=== PATIENT | male | born 1990 | race American Indian/Alaskan Native ===

== ENCOUNTER 2019-05-20 09:45 | Emergency (ER) | payer SELFPAY ==
[2019-05-20] MEDS ORDERED: ZOFRAN IV ONE (10:06)
[2019-05-20] MEDS ORDERED: NACL 0.9% 1000 ML 1,000 ML IV ONE (10:06)
[2019-05-20] MEDS ORDERED: MORPHINE IV ONE (10:06)
--- NOTE | 2019-05-20 10:10 | Emergency Department Report ---
HPI - General Chief Complaint: Abdominal Pain Time Seen by Provider: 05/20/19 10:04 - HPI HPI: 28-year-old -[place] male presents to the emergency department via EMS from home with complaint of right-sided abdominal and flank pain that started last night. It associated with some nausea and vomiting. He has not taken anything for her symptoms prior to arrival. He has a history of multiple kidney stones in the past. No primary care physician. He did not receive anything in route. He describes his pain intensity is 10 out of 10. No known aggravating or alleviating factors. ED Past Medical Hx - Past Medical History Previous Medical History?: Yes Hx Kidney Stones: Yes - Social History Smoking Status: Current Every Day Smoker Substance Use Type: Alcohol, Marijuana - Medications Home Medications: Home Medications Medication Instructions Recorded Confirmed Last Taken Type HYDROcodone/APAP 5-325 [[place] 1 each PO Q6HR PRN #10 tablet 05/20/19 Unknown Rx 5/325] Sulfamethoxazole/Trimethoprim 1 each PO BID #10 tablet 05/20/19 Unknown Rx [Bactrim DS TAB] Tamsulosin [Flomax] 0.4 mg PO QDAY #4 cap 05/20/19 Unknown Rx ED Review of Systems ROS: Stated complaint: ABD PAIN Other details as noted in HPI Comment: All other systems reviewed and negative Constitutional: denies: chills, fever Eyes: denies: eye pain, vision change ENT: denies: ear pain, throat pain Respiratory: denies: cough, shortness of breath Cardiovascular: denies: chest pain, palpitations Gastrointestinal: abdominal pain, nausea, vomiting Genitourinary: denies: dysuria, frequency Musculoskeletal: denies: joint swelling, arthralgia Skin: denies: rash, lesions Neurological: denies: headache, weakness Physical Exam - Physical Exam Vital Signs: Vital Signs 05/20/19 05/20/19 05/20/19 09:54 10:02 10:04 Temperature 98.0 F 98.0 F Pulse Rate 66 68 Respiratory 18 16 Rate Blood Pressure 125/80 Blood Pressure 125/80 [Left] O2 Sat by Pulse 100 100 100 Oximetry Physical Exam: GENERAL: The patient is well-developed well-nourished. HENT: Normocephalic. Atraumatic. Patient has moist mucous membranes. EYES: Extraocular motions are intact. Pupils equal reactive to light bi laterally. NECK: Supple. Trachea is midline. CHEST/LUNGS: Clear to auscultation. There is no respiratory distress noted. HEART/CARDIOVASCULAR: Regular. There is no tachycardia. There is no murmur. ABDOMEN: Abdomen is soft. Right-sided abdominal pain is not reproducible. No guarding. Patient has normal bowel sounds. There is no abdominal distention. SKIN: Skin is warm and dry. NEURO: The patient is awake, alert, and oriented. The patient is cooperative. The patient has no focal neurologic deficits. The patient has normal speech. MUSCULOSKELETAL: There is no tenderness or deformity. There is no evidence of acute injury. ED Course Vital Signs 05/20/19 05/20/19 05/20/19 09:54 10:02 10:04 Temperature 98.0 F 98.0 F Pulse Rate 66 68 Respiratory 18 16 Rate Blood Pressure 125/80 Blood Pressure 125/80 [Left] O2 Sat by Pulse 100 100 100 Oximetry ED Medical Decision Making - Lab Data Result diagrams: 05/20/19 09:59 05/20/19 10:15 - Radiology Data Radiology results: report reviewed CT ABDOMEN AND PELVIS WITHOUT IV CONTRAST INDICATION: right sided abd and flank pain, hx of kidney stone. COMPARISON: None available. TECHNIQUE: All CT scans at this facility use dose modulation, automated exposure control, iterative reconstruction or weight based dosing, when appropriate, to reduce radiation dose to as low as reasonably achievable. FINDINGS: Lung Bases: Clear. Skeletal System: No acute abnormality. ABDOMEN: Liver: Normal. Gallbladder: Normal. Bile Ducts: Normal. Pancreas: Normal. Spleen: Normal. Adrenals: Normal. Right Kidney: There is a 4 mm stone in the right ureter at the level of L4 vertebral body which results in mild right hydronephrosis. No intrarenal stones are seen. Left Kidney: Normal. Stomach and Bowel: Normal. Lymph Nodes: No significant adenopathy. Aorta: No significant abnormality. Additional Findings: None. PELVIS: Colon: Normal . Urinary Bladder and Distal Ureters: Normal. Appendix: Normal. Lymph Nodes: No significant adenopathy. Additional Findings: None. IMPRESSION: 1. 4 mm stone in the right ureter results in mild right hydronephrosis. No intrarenal stones. - Medical Decision Making This patient presents to the emergency department with some acute right-sided abdominal and flank pain as well as an episode of nausea and vomiting. Labs have been mostly unremarkable except for the urinalysis which shows microscopic hematuria and a mild UTI. CT scan of the abdomen and pelvis without contrast shows a right-sided 4 mm ureteral stone with only mild hydronephrosis. Given the size of the stone, there is a very high percent chance that the patient will be able to pass this over the next few days. He was given a urine strainer. He was given a prescription for some pain medication, Flomax and antibiotics. He was given a referral for urology. He will return to the ER with any worsening of his symptoms or any acute distress. Vital signs stable. There is been no further vomiting since his initial presentation. - Differential Diagnosis nephrolithiasis, appendicitis, pyelonephritis, UTI Critical Care Time: No Critical care attestation.: If time is entered above; I have spent that time in minutes in the direct care of this critically ill patient, excluding procedure time. ED Disposition Clinical Impression: Nephrolithiasis UTI (urinary tract infection) Qualifiers: Urinary tract infection type: acute cystitis Hematuria presence: with hematuria Qualified Code(s): N30.01 - Acute cystitis with hematuria Disposition: TO HOME OR SELFCARE Is pt being admited?: No Condition: Stable Instructions: Kidney Stones (ED), Renal Colic (ED), How to Strain Your Urine (ED) Additional Instructions: These follow-up with your primary care physician in the next few days. I am giving him a referral for a local urologist, Dr. Llamas, to follow-up regarding her kidney stones. Strain your urine. Take the medications as prescribed. Return to the emergency Department with any worsening of your symptoms or any acute distress. You have been prescribed a medication that is sedating and therefore should not be taken prior to driving, working, and responsible for children and in no way should be mixed with alcohol of any quantity. Prescriptions: Sulfamethoxazole/Trimethoprim [Bactrim DS TAB] 1 each PO BID #10 tablet Tamsulosin [Flomax] 0.4 mg PO QDAY #4 cap HYDROcodone/APAP 5-325 [[place] 5/325] 1 each PO Q6HR PRN #10 tablet PRN Reason: Pain Referrals: MARCIA LLAMAS MD [Staff Physician] - 2-3 Days Time of Disposition: 12:19
[2019-05-20 10:25] LABS: Basophils % (Auto) 0.6 % (0.0-1.8); Eosinophils # (Auto) 0.2 K/mm3 (0.0-0.4); Eosinophils % (Auto) 4.2 % (0.0-4.3); Hematocrit 42.7 % (35.5-45.6); Lymphocytes # (Auto) 1.1 K/mm3 (1.2-5.4); Lymphocytes % (Auto) 19.4 % (13.4-35.0); Mean Corpuscular HGB Conc 35 % (32-34); Mean Corpuscular Volume 92 fl (84-94); Monocytes # (Auto) 0.8 K/mm3 (0.0-0.8); Platelet Count 251 K/mm3 (140-440); Red Blood Count 4.62 M/mm3 (3.65-5.03); Red Cell Distribution Width 13.2 % (13.2-15.2)
[2019-05-20 10:51] LABS: Alanine Aminotransferase 11 units/L (7-56); BUN/Creatinine Ratio 12; Blood Urea Nitrogen 12 mg/dL (9-20); Calcium 9.1 mg/dL (8.4-10.2); Hemolysis Index 10
[2019-05-20 11:08] LABS: Bilirubin,Direct < 0.2 mg/dL (0-0.2)
--- NOTE | 2019-05-20 11:30 | Cat Scan Report ---
CT ABDOMEN AND PELVIS WITHOUT IV CONTRAST INDICATION: right sided abd and flank pain, hx of kidney stone. COMPARISON: None available. TECHNIQUE: All CT scans at this facility use dose modulation, automated exposure control, iterative reconstructi on or weight based dosing, when appropriate, to reduce radiation dose to as low as reasonably achieva ble. FINDINGS: Lung Bases: Clear. Skeletal System: No acute abnormality. ABDOMEN: Liver: Normal. Gallbladder: Normal. Bile Ducts: Normal. Pancreas: Normal. Spleen: Normal. Adrenals: Normal. Right Kidney: There is a 4 mm stone in the right ureter at the level of L4 vertebral body which resul ts in mild right hydronephrosis. No intrarenal stones are seen. Left Kidney: Normal. Stomach and Bowel: Normal. Lymph Nodes: No significant adenopathy. Aorta: No significant abnormality. Additional Findings: None. PELVIS: Colon: Normal . Urinary Bladder and Distal Ureters: Normal. Appendix: Normal. Lymph Nodes: No significant adenopathy. Additional Findings: None. IMPRESSION: 1. 4 mm stone in the right ureter results in mild right hydronephrosis. No intrarenal stones. 2 Signer Name: Du Arriaga MD Signed: 05/20/2019 11:26 AM Workstation Name: [email or web address]
[2019-05-20 12:09] LABS: Bilirubin,Urine NEG (Negative); Blood,Urine LG (Negative); Color,Urine Yellow (Yellow); Mucus,Urine 3+ /HPF; Urobilinogen,Urine < 2.0 mg/dL (<2.0)
[2019-05-20 12:11] LABS: RBC,Urine > 182.0 /HPF (0.0-6.0)
[2019-05-20 12:52] VITALS: BP 113/65
== END 2019-05-20 12:45 | disposition home or self-care (01) ==
LOC: ED 09:45
DX: N20.0 Calculus of kidney (principal); N39.0 Urinary tract infection, site not specified; F17.200 Nicotine dependence, unspecified, uncomplicated; F12.10 Cannabis abuse, uncomplicated; Z87.442 Personal history of urinary calculi; Z79.899 Other long term (current) drug therapy
CPT/HCPCS: 36415; 74176; 80048; 80076; 81001; 85025; 87086; 96361; 96374; 96375; 99285; J2270; J2405; J7030